=== PATIENT | male | born 1975 | race Caucasian/White ===

== ENCOUNTER 2024-10-10 08:35 | Outpatient (RCR) | payer OTHER, SELFPAY | END 2024-10-12 23:59 | disposition home or self-care (01) | LOC: SPT 08:35 | PROVIDERS: Visit Provider Family Medicine | DX: M23.304 Other meniscus derangements, unspecified medial meniscus, left knee (principal) | CPT/HCPCS: 97161 ==

== ENCOUNTER 2024-10-13 06:30 | Outpatient (RCR) | payer OTHER, SELFPAY | END 2024-11-09 23:59 | disposition home or self-care (01) | LOC: SPT 06:30 | PROVIDERS: Visit Provider Family Medicine | DX: M23.304 Other meniscus derangements, unspecified medial meniscus, left knee (principal) | CPT/HCPCS: 97110 ==

== ENCOUNTER 2024-11-10 06:30 | Outpatient (RCR) | payer OTHER, SELFPAY | END 2024-11-14 08:25 | disposition home or self-care (01) | LOC: SPT 06:30 | PROVIDERS: Visit Provider Family Medicine | DX: M23.304 Other meniscus derangements, unspecified medial meniscus, left knee (principal) | CPT/HCPCS: 97110 ==